=== PATIENT | female | born 1955 | race Caucasian/White ===

== ENCOUNTER 2017-07-14 09:37 | Inpatient (IN) | payer BC ==
[~2017-07-14] VITALS: Ht 162.6 cm; Wt 61.7 kg
[2017-07-14] MEDS ORDERED: SIMVASTATIN40 MG ORAL (09:50)
[2017-07-14] MEDS ORDERED: CARVEDILOL6.25 MG ORAL (09:50)
[2017-07-14 09:54] VITALS: BP 165/84
[2017-07-14 10:33] LABS: BASOPHILS % (AUTO) 0.5 % (0.0-2.0); MEAN CORPUSCULAR HEMOGLOBIN 31.3 PG (27.0-31.0); MEAN CORPUSCULAR HGB CONC 32.6 G/DL (32.0-36.0); MEAN CORPUSCULAR VOLUME 96 FL (80-99); MEAN PLATELET VOLUME 6.8 FL (6.5-10.1); MONOCYTES % (AUTO) 10.4 % (1.0-10.0); NEUTROPHILS % (AUTO) 53.1 % (45.0-75.0); PLATELET COUNT 295 K/UL (150-450); RED BLOOD COUNT 4.51 M/UL (4.20-5.40); RED CELL DISTRIBUTION WIDTH 11.2 % (11.6-14.8); WHITE BLOOD COUNT 6.2 K/UL (4.8-10.8)
[2017-07-14 10:55] LABS: ANION GAP 9 mmol/L (5-15); CALCIUM 9.4 MG/DL (8.5-10.1); CARBON DIOXIDE 28 MMOL/L (21-32); CHLORIDE 104 MMOL/L (98-107); CREATININE 0.7 MG/DL (0.55-1.30); GLOMERULAR FILTRATION RATE > 60 mL/min (>60); POTASSIUM 3.9 MMOL/L (3.5-5.1); SODIUM 141 MMOL/L (136-145)
[2017-07-14 10:57] VITALS: BP 158/87
[2017-07-14 11:07] LABS: ALANINE AMINOTRANSFERASE 26 U/L (12-78); ASPARTATE AMINO TRANSFERASE 30 U/L (15-37); CKMB 1.8 NG/ML (0.0-3.6); TOTAL PROTEIN 8.1 G/DL (6.4-8.2)
--- NOTE | 2017-07-14 11:31 | Emergency Room Report ---
History of Present Illness General Chief Complaint: Chest Pain Source: Patient Present Illness HPI 62-year-old female presents ED planning of chest pain. Started this morning while at rest. Left-sided, pressure-like, radiating to jaw, 7/10. Last for several seconds then subsided. Patient had 2 more episodes of chest pain since. Nonexertional. Denies chest pain at this time. History of hypertension. Denies smoking or drug use. No other aggravating relieving factors. Denies any other associated symptoms Allergies: Coded Allergies: No Known Allergies (Unverified , 07/14/17) Patient History Past Medical History: HTN Past Surgical History: none Pertinent Family History: none Social History: Denies: smoking, alcohol use, drug use Now: No Immunizations: UTD Reviewed Nursing Documentation: PMH: Agreed, PSxH: Agreed Nursing Documentation-PMH Hx Hypertension: Yes Review of Systems All Other Systems: negative except mentioned in HPI Physical Exam Vital Signs Date Time Temp Pulse Resp B/P (MAP) Pulse Ox O2 Delivery O2 Flow Rate FiO2 07/14/17 09:45 98.1 76 17 165/84 99 Room Air Sp02 EP Interpretation: reviewed, normal General Appearance: no apparent distress, alert, GCS 15, non-toxic Head: normocephalic, atraumatic Eyes: bilateral eye normal inspection, bilateral eye PERRL ENT: hearing grossly normal, normal pharynx, no angioedema, normal voice Neck: full range of motion, supple/symm/no masses Respiratory: chest non-tender, lungs clear, normal breath sounds, speaking full sentences Cardiovascular #1: regular rate, rhythm, no edema Cardiovascular #2: 2+ carotid (R), 2+ carotid (L), 2+ radial (R), 2+ radial (L) , 2+ dorsalis pedis (R), 2+ dorsalis pedis (L) Gastrointestinal: normal bowel sounds, non tender, soft, non-distended, no guarding, no rebound Rectal: deferred Genitourinary: normal inspection, no CVA tenderness Musculoskeletal: back normal, gait/station normal, normal range of motion, non- tender Neurologic: alert, oriented x3, responsive, motor strength/tone normal, sensory intact, speech normal Psychiatric: judgement/insight normal, memory normal, mood/affect normal, no suicidal/homicidal ideation Reflexes: 3+ bicep (R), 3+ bicep (L), 3+ tricep (R), 3+ tricep (L), 3+ knee (R) , 3+ knee (L) Skin: normal color, no rash, warm/dry, well hydrated Lymphatic: no adenopathy Medical Decision Making Diagnostic Impression: Primary Impression: ACS (acute coronary syndrome) ER Course Hospital Course 62-year-old female presents ED complaining of intermittent chest pain Differential diagnoses include: [place]/unstable angina, contusion, muscle strain, PTX, rib fracture Clinical course Patient placed on stretcher. on decorative greens cutter. After initial history and physical I ordered labs, EKG, chest x-ray labs reviewed- no leukocytosis, hb/hct stable, electrolytes ok, trop negative EKG - NSR, no acute ischemic changes interpreted by me Chest x-ray- no acute process aspirin given. Case discussed with Dr. Craig and he agreed to accept the patient to his service for further care and support I. I feel this is a highly complex case requiring extensive working including EKG/Rhythm strip, Xray/CT/US, Blood/urine lab work, repeat exams while in ED, and administration of strong opiates/narcotics for pain control, admission to hospital or close patient follow up. Diagnosis - ACS admitted to telemetry in serious condition Labs Test 07/14/17 10:10 White Blood Count 6.2 K/UL (4.8-10.8) Red Blood Count 4.51 M/UL (4.20-5.40) Hemoglobin 14.1 G/DL (12.0-16.0) Hematocrit 43.4 % (37.0-47.0) Mean Corpuscular Volume 96 FL (80-99) Mean Corpuscular Hemoglobin 31.3 PG (27.0-31.0) Mean Corpuscular Hemoglobin Concent 32.6 G/DL (32.0-36.0) Red Cell Distribution Width 11.2 % (11.6-14.8) Platelet Count 295 K/UL (150-450) Mean Platelet Volume 6.8 FL (6.5-10.1) Neutrophils (%) (Auto) 53.1 % (45.0-75.0) Lymphocytes (%) (Auto) 35.0 % (20.0-45.0) Monocytes (%) (Auto) 10.4 % (1.0-10.0) Eosinophils (%) (Auto) 1.0 % (0.0-3.0) Basophils (%) (Auto) 0.5 % (0.0-2.0) Sodium Level 141 MMOL/L (136-145) Potassium Level 3.9 MMOL/L (3.5-5.1) Chloride Level 104 MMOL/L (98-107) Carbon Dioxide Level 28 MMOL/L (21-32) Anion Gap 9 mmol/L (5-15) Blood Urea Nitrogen 11 mg/dL (7-18) Creatinine 0.7 MG/DL (0.55-1.30) Estimat Glomerular Filtration Rate > 60 mL/min (>60) Glucose Level 109 MG/DL (74-106) Calcium Level 9.4 MG/DL (8.5-10.1) Total Bilirubin 0.3 MG/DL (0.2-1.0) Aspartate Amino Transf (AST/SGOT) 30 U/L (15-37) Alanine Aminotransferase (ALT/SGPT) 26 U/L (12-78) Alkaline Phosphatase 73 U/L (46-116) Total Creatine Kinase 80 U/L (26-308) Creatine Kinase MB 1.8 NG/ML (0.0-3.6) Creatine Kinase MB Relative Index 2.2 Troponin I 0.000 ng/mL (0.000-0.056) Pro-B-Type Natriuretic Peptide 30 pg/mL (0-125) Total Protein 8.1 G/DL (6.4-8.2) Albumin 4.1 G/DL (3.4-5.0) Globulin 4.0 g/dL Albumin/Globulin Ratio 1.0 (1.0-2.7) EKG Diagnostic Results Rate: normal Rhythm: NSR ST Segments: no acute changes ASA given to the pt in ED: Yes Rhythm Strip Diag. Results EP Interpretation: yes Rhythm: NSR, no PVC's, no ectopy Chest X-Ray Diagnostic Results Chest X-Ray Diagnostic Results : Chest X-Ray Ordered: Yes # of Views/Limited/Complete: 1 View Indication: Chest Pain EP Interpretation: Yes Interpretation: no consolidation, no effusion, no pneumothorax, no acute cardiopulmonary disease Impression: No acute disease Electronically Signed by: Electronically signed by Martin Liao MD Last Vital Signs Date Time Temp Pulse Resp B/P (MAP) Pulse Ox O2 Delivery O2 Flow Rate FiO2 07/14/17 10:57 98.1 17 158/87 99 Room Air 07/14/17 09:54 76 Status: improved Disposition: ADMITTED INPATIENT Condition: Serious Referrals: NON PHYSICIAN (PCP) MARTIN LIAO M.D. Jul 14, 2017 11:31
--- NOTE | 2017-07-14 11:36 | Diagnostic Imaging Report ---
Indication: Chest pain Technique: One view of the chest Comparison: none Findings: Lungs and pleural spaces are clear. Heart size is normal. Impression: No acute process
[2017-07-14] MEDS ORDERED: Enalaprilat 2.5mg/2ml Inj IV PRN (12:00)
[2017-07-14] MEDS ORDERED: Ketorolac 30mg Inj IV PRN (12:00)
[2017-07-14] MEDS ORDERED: dilTIAZem HCl 25mg/5ml Inj IV PRN (12:00)
[2017-07-14] MEDS ORDERED: Miralax 17gm pkt ORAL PRN (12:00)
[2017-07-14] MEDS ORDERED: Morphine Sulfate 2mg/ml Inj IVP PRN (12:00)
[2017-07-14] MEDS ORDERED: Albuterol/Ipratropium 3ml neb HHN PRN (12:00)
[2017-07-14 12:03] LABS: APPEARANCE,URINE CLEAR; KETONES,URINE NEGATIVE (NEGATIVE); LEUKOCYTE ESTERASE ,URINE 1+ (NEGATIVE); NITRITE,URINE NEGATIVE (NEGATIVE); PH,URINE 8 (4.5-8.0); PROTEIN,URINE NEGATIVE (NEGATIVE); UROBILINOGEN,URINE NORMAL MG/DL (0.0-1.0)
[2017-07-14] MEDS ORDERED: Nitroglycerin Subl 0.4mg tab SL PRN (12:15)
[2017-07-14 12:19] LABS: BACTERIA,URINE OCCASIONAL /HPF; RBC,URINE 0-2 /HPF (0 - 2); SQUAMOUS EPITHELIAL CELL,UR OCCASIONAL /LPF (NONE/OCC); WBC,URINE 0-2 /HPF (0 - 2)
[2017-07-14 14:50] VITALS: BP 139/84
--- NOTE | 2017-07-14 18:59 | Cardiology Progress Note ---
Assessment/Plan Assessment/Plan [id number] very atypiicla cp unlikey ischemic awiat trop and ekg repeat Objective Last 24 Hour Vital Signs Date Time Temp Pulse Resp B/P (MAP) Pulse Ox O2 Delivery O2 Flow Rate FiO2 07/14/17 16:51 85 07/14/17 14:50 97.9 65 18 139/84 97 07/14/17 13:24 98.1 17 158/87 99 Room Air 07/14/17 10:57 98.1 17 158/87 99 Room Air 07/14/17 09:54 76 17 Room Air 07/14/17 09:54 98.1 17 165/84 99 Room Air 07/14/17 09:45 98.1 76 17 165/84 99 Room Air Intake and Output 07/14/17 07/15/17 19:00 07:00 Intake Total 0 ml Balance 0 ml Intake Oral 0 ml Laboratory Tests Test 07/14/17 10:10 07/14/17 11:45 White Blood Count 6.2 K/UL (4.8-10.8) Red Blood Count 4.51 M/UL (4.20-5.40) Hemoglobin 14.1 G/DL (12.0-16.0) Hematocrit 43.4 % (37.0-47.0) Mean Corpuscular Volume 96 FL (80-99) Mean Corpuscular Hemoglobin 31.3 PG (27.0-31.0) H Mean Corpuscular Hemoglobin Concent 32.6 G/DL (32.0-36.0) Red Cell Distribution Width 11.2 % (11.6-14.8) L Platelet Count 295 K/UL (150-450) Mean Platelet Volume 6.8 FL (6.5-10.1) Neutrophils (%) (Auto) 53.1 % (45.0-75.0) Lymphocytes (%) (Auto) 35.0 % (20.0-45.0) Monocytes (%) (Auto) 10.4 % (1.0-10.0) H Eosinophils (%) (Auto) 1.0 % (0.0-3.0) Basophils (%) (Auto) 0.5 % (0.0-2.0) Sodium Level 141 MMOL/L (136-145) Potassium Level 3.9 MMOL/L (3.5-5.1) Chloride Level 104 MMOL/L (98-107) Carbon Dioxide Level 28 MMOL/L (21-32) Anion Gap 9 mmol/L (5-15) Blood Urea Nitrogen 11 mg/dL (7-18) Creatinine 0.7 MG/DL (0.55-1.30) Estimat Glomerular Filtration Rate > 60 mL/min (>60) Glucose Level 109 MG/DL (74-106) H Calcium Level 9.4 MG/DL (8.5-10.1) Total Bilirubin 0.3 MG/DL (0.2-1.0) Aspartate Amino Transf (AST/SGOT) 30 U/L (15-37) Alanine Aminotransferase (ALT/SGPT) 26 U/L (12-78) Alkaline Phosphatase 73 U/L (46-116) Total Creatine Kinase 80 U/L (26-308) Creatine Kinase MB 1.8 NG/ML (0.0-3.6) Creatine Kinase MB Relative Index 2.2 Troponin I 0.000 ng/mL (0.000-0.056) Pro-B-Type Natriuretic Peptide 30 pg/mL (0-125) Total Protein 8.1 G/DL (6.4-8.2) Albumin 4.1 G/DL (3.4-5.0) Globulin 4.0 g/dL Albumin/Globulin Ratio 1.0 (1.0-2.7) Urine Color Yellow Urine Appearance Clear Urine pH 8 (4.5-8.0) Urine Specific [place] 1.015 (1.005-1.035) Urine Protein Negative (NEGATIVE) Urine Glucose (UA) Negative (NEGATIVE) Urine Ketones Negative (NEGATIVE) Urine Occult Blood Negative (NEGATIVE) Urine Nitrite Negative (NEGATIVE) Urine Bilirubin Negative (NEGATIVE) Urine Urobilinogen Normal MG/DL (0.0-1.0) Urine Leukocyte Esterase 1+ (NEGATIVE) H Urine RBC 0-2 /HPF (0 - 2) Urine WBC 0-2 /HPF (0 - 2) Urine Squamous Epithelial Cells Occasional /LPF Urine Bacteria Occasional /HPF (NONE) SIXTO COREY Jul 14, 2017 18:59
[2017-07-14] MEDS: Carvedilol 6.25mg Tab ORAL SCH (21:44)
[2017-07-14] MEDS: Heparin 5000 units/ml inj SUBQ SCH (21:45)
--- NOTE | 2017-07-14 23:42 | History & Physical ---
History and Physical History & Physicial H & P Dictated Job # Richard Craig MD Jul 14, 2017 23:42
[2017-07-15 00:42] VITALS: BP 105/59
[2017-07-15 04:00] VITALS: BP 108/60
--- NOTE | 2017-07-15 04:15 | Consultation ---
DATE OF CONSULTATION: 07/14/2017 CARDIOLOGY CONSULTATION CONSULTING PHYSICIAN: Reaz Luque M.D. REFERRING PHYSICIAN: Dami Barton M.D. REASON FOR EVALUATION: Management of chest pain. HISTORY OF PRESENT ILLNESS: This is a 62-year-old female, who gives history of familial hyperlipidemia and hypertension, who presented to the hospital because of two episodes of pain that occurred today, each lasting approximately 20 seconds or so. No relieving or exacerbating factors identified by the patient. No worsening with twisting, turning, taking deep breath, coughing, or palpation. Because of her symptoms and on the second episode where she had some radiation of the pain to her left shoulder, she decided to come in. She got an Uber to come to the hospital emergency room and was admitted through the emergency room for further evaluation. She has not had any of the pain ever since then and she has not had the pain prior to this. She has had a stress test apparently at [facility] by her knife changer within the last year and that apparently was normal. She does not have any PND or orthopnea. She uses one pillow. There is no dizziness on standing. No heart pounding or palpitations in the past. PAST MEDICAL HISTORY: Positive for familial hyperlipidemia and hypertension. No history of heart attack, cancer, stroke, hepatitis, tuberculosis, asthma, or emphysema. No ulcers. No kidney problems, liver problems, thyroid problems, anemia, HIV/AIDS, blood clots, or any other medical problems. ALLERGIES: No allergies to medications. SOCIAL HISTORY: Two drinks of wine at times per day. No drugs and no tobacco. REVIEW OF SYSTEMS: GASTROINTESTINAL: Negative. GENITOURINARY: Negative. PULMONARY: Negative. CONSTITUTIONAL: Negative. NEUROLOGIC: Negative. PHYSICAL EXAMINATION: GENERAL: Examination shows her to be a middle-aged female, in no respiratory distress. HEENT: Unremarkable. NECK: Supple. No jugular venous distention. No abdominojugular reflux is noted. LUNGS: Clear to auscultation and percussion. CARDIAC: S1 is normal. S2 is normal. Regular rate and rhythm. No heaves, thrills, gallops, or rubs are noted. ABDOMEN: Soft and nontender. Positive bowel sounds. EXTREMITIES: There is no edema or cyanosis. MUSCULOSKELETAL: No chest wall tenderness. No reproduction of pain on palpation of the chest wall. LABORATORY AND DIAGNOSTIC DATA: Telemetry strips so far negative. The patient had an echocardiogram, preliminary report shows normal LV function, ejection fraction valvular dysfunction. EKG showed normal sinus rhythm, no ST-T wave abnormalities, delay in R-wave progression . Troponin was negative on the first check. BNP of only 30. Sodium 141, potassium 3.9, chloride 104, bicarbonate 28, BUN of 11, creatinine 0.7, and glucose of . Calcium is 9.4. White count 6.3, hemoglobin 14.1, and platelet count of 295,000. Urinalysis is fairly unremarkable. She did have a chest x-ray performed in the emergency room, interpreted by the radiologist as no acute processes. ASSESSMENT: 1. Atypical chest pain. 2. Familial hyperlipidemia. 3. Hypertension. PLAN: Dr. Barton, this patient was seen in cardiac consultation. The patient's blood pressure is anywhere between 150-160s over 84-87. Heart rate is in the 60s. Temperature 97.9. First set of cardiac enzymes negative and EKG was negative, but I recommend checking two other sets of cardiac enzymes and another EKG tomorrow morning. Her pain is really atypical lasting only 20 seconds and unlikely to be myocardial ischemic pain, however, she does have some risk factors for coronary artery disease. I have offered her to do an exercise stress test here. She indicated she has had one done recently and she was instructed that she might if she wanted to have a stress test done tomorrow, she does not want to have this test done here. Tomorrow, she may have it and follow up with her usual knife changer at [facility], otherwise an exercise Cardiolite test may be very helpful for exclusion of underlying coronary artery disease, although the pain that she describes is unlikely to be ischemic in origin. Reza Luque M.D. DR: MARIA DE JESUS JOB#: [id number] CC:
[2017-07-15 07:30] LABS: BASOPHILS % (AUTO) 0.7 % (0.0-2.0); EOSINOPHILS % (AUTO) 1.7 % (0.0-3.0); LYMPHOCYTES % (AUTO) 42.3 % (20.0-45.0); MEAN CORPUSCULAR HEMOGLOBIN 32.3 PG (27.0-31.0); MEAN CORPUSCULAR HGB CONC 33.1 G/DL (32.0-36.0); MEAN CORPUSCULAR VOLUME 98 FL (80-99); MEAN PLATELET VOLUME 6.9 FL (6.5-10.1); MONOCYTES % (AUTO) 11.3 % (1.0-10.0); PLATELET COUNT 251 K/UL (150-450); RED BLOOD COUNT 4.01 M/UL (4.20-5.40); RED CELL DISTRIBUTION WIDTH 11.6 % (11.6-14.8); WHITE BLOOD COUNT 6.7 K/UL (4.8-10.8)
[2017-07-15 08:30] LABS: CHOLESTEROL 253 MG/DL (< 200); CHOLESTEROL/HDL RATIO 2.9 (3.3-4.4); CRP QUANT < 0.4 mg/dL (0.00-0.90); THYROID STIMULATING HORMONE 3.007 uiU/mL (0.358-3.740)
[2017-07-15 08:49] VITALS: BP 124/76
[2017-07-15] MEDS: Heparin 5000 units/ml inj SUBQ SCH (08:49)
[2017-07-15] MEDS: Carvedilol 6.25mg Tab ORAL SCH (08:49)
--- NOTE | 2017-07-15 08:54 | Discharge Summary ---
Discharge Summary Hospital Course Date of Admission Jul 14, 2017 at 11:28 Date of Discharge Admitting Diagnosis ACUTE CORONARY SYNDROME HPI Claudia Segura is a 62 year old female who was admitted on Jul 14, 2017 at 11 :28 for Acute Coronary Syndrome Hospital Course Discharge Discharge Disposition Patient was discharged to Discharge Diagnoses: Richard Craig MD Jul 15, 2017 08:54
[2017-07-15] MEDS ORDERED: ASPIRIN81 MG ORAL (08:59)
[2017-07-15] MEDS ORDERED: Aspirin Baby 81mg ORAL SCH (09:00)
--- NOTE | 2017-07-15 11:24 | Cardiology Report ---
APPROVED REPORT EKG Measurement Heart [id number] Sinus bradycardia Anteroseptal infarct, age undetermined Abnormal ECG
--- NOTE | 2017-07-15 11:27 | Cardiology Report ---
APPROVED REPORT EKG Measurement Heart [id number] Normal sinus rhythm Septal infarct, age undetermined Abnormal ECG
--- NOTE | 2017-07-15 16:16 | History and Physical Report ---
DATE OF ADMISSION: 07/14/2017 CHIEF COMPLAINT: Chest pain. HISTORY OF PRESENT ILLNESS: This is a 62-year-old female with past medical history significant for familial dyslipidemia and hypertension who presented to the hospital complaining about two episodes of chest pain lasted approximately about 20 seconds, no relieving or exacerbation factors. She complained about the radiation to the arms, left arm and shoulder. She said that she recently had a stress test done with her primary doctor who is a wood borer at [facility] with unremarkable stress test and the patient was subsequently after initial evaluation in the emergency was admitted to the hospital with chest pain, possible acute coronary syndrome. PAST MEDICAL HISTORY AND PAST SURGICAL HISTORY: Significant for familial dyslipidemia as well as hypertension. Denies any history of heart attack, cancer, or stroke in the past. MEDICATIONS: Medications at home is significant for carvedilol and simvastatin. ALLERGIES: No known drug allergies. SOCIAL HISTORY: The patient drinks wine two drinks per day. Denies any drugs or substance. FAMILY HISTORY: Noncontributory. REVIEW OF SYSTEMS: Mostly as above. Denies any dysuria, frequency, hematuria, or hematochezia. Denies any hemoptysis or hematochezia. Denies any loss of consciousness. Denies any double vision. PHYSICAL EXAMINATION: VITAL SIGNS: Temperature 97.3, pulse of 57, respirations 20, and blood pressure 108/60. GENERAL: The patient is awake and responsive, in no acute distress. HEAD AND NECK: Pupils are reactive to light. Extraocular movements are intact. NECK: Supple. No JVD. LUNGS: Good air entry. No wheezing or rales. HEART: S1 and S2. Regular rhythm. No gallops. ABDOMEN: Soft, nondistended, and nontender. Positive bowel sounds. EXTREMITIES: No cyanosis, clubbing, or edema. NEUROLOGIC: Cranial nerves II through XII are grossly intact. Motor is 5/5 in all extremities. Gait is intact. LABORATORY AND DIAGNOSTIC DATA: On admission, WBC of 6.2, hemoglobin 14, hematocrit 43, and platelet is 295. The patient's sodium 141, potassium 3.9, chloride 104, bicarbonate 28, BUN 11, creatinine 0.7, and glucose is 109. Liver function essentially unremarkable. First and second troponin unremarkable at 0.00. The patient's total cholesterol is 253 and triglyceride is 103. Urinalysis, +1 leukocyte otherwise negative WBC or RBC. PT of 10, INR 1.0, and PTT of 28. EKG was done noted to be normal sinus rhythm with rate of 63. No ST elevation was identified. No T-wave inversions. Chest x-ray, no acute process. ASSESSMENT: 1. Chest pain, possible acute coronary syndrome. 2. Dyslipidemia. 3. Hypertension. PLAN: Admit the patient to telemetry. We will follow up laboratory. Serial cardiac enzymes. If the cardiac enzymes are negative due to the fact the patient just had a stress test done, we will consider to defer stress test and discharge patient to home to be follow up with the primary doctor as outpatient. The patient has been consulted with Dr. Reza Luque from Cardiology. Richard Craig M.D. DR: BRE JOB#: [id number] CC:
--- NOTE | 2017-07-16 05:15 | Discharge Summary ---
DATE OF ADMISSION: 07/14/2017 DATE OF DISCHARGE: 07/15/2017 HISTORY AND HOSPITAL COURSE: This is a 62-year-old female with past medical history significant for dyslipidemia and hypertension who has presented to the hospital complaining about chest pain. Shortly after initial evaluation, the patient was consulted with Dr. Reza Luque from Cardiology. Her cardiac enzyme was essentially unremarkable. The patient's symptoms improved and subsequently the patient was discharged home today to follow up with the primary doctor at [facility]. FINAL DIAGNOSES: 1. Atypical chest pain. 2. Hypertension. 3. Dyslipidemia. MEDICATION ON DISCHARGE: Continue discharge medication list. ACTIVITY: As tolerated. DIET: Cardiac diet. FOLLOWUP: The patient was advised to follow up with the primary doctor at [facility] within 1 to 2 weeks. Richard Craig M.D. DR: BRE JOB#: [id number] CC:
--- NOTE | 2017-07-18 10:18 | Cardiology Report ---
APPROVED REPORT EXAM: Two-dimensional and M-mode echocardiogram with Doppler and color Doppler. M-Mode DIMENSIONS IVSd0.5 (0.7-1.1cm)Left Atrium (MM)2.3 (1.6-4.0cm) LVDd4.3 (3.5-5.6cm)Aortic Root3.1 (2.0-3.7cm) PWd0.9 (0.7-1.1cm)Aortic Cusp Exc.1.9 (1.5-2.0cm) IVSs1.1 cm LVDs2.5 (2.5-4.0cm) PWs1.2 cm Normal left ventricular chamber size, systolic function and wall motion. Left ventricular ejection fraction estimated to be 65-70 %. No evidence of left ventricular hypertrophy. No evidence of pericardial effusion. All other cardiac chamber sizes are within normal limits. Mild Focal aortic valve sclerosis with adequate cusp excursion. Mild Thickened mitral valve leaflets with normal excursion. Mild Mitral annulus and aortic root calcification. Normal pulmonic valve structure. Normal tricuspid valve structure. IVC at normal size with physiologic collapse. A color flow and spectral Doppler study was performed and revealed: No aortic regurgitation. Trace mitral regurgitation. Mitral diastolic velocities suggest reduced left ventricular relaxation c/w mild LV diastolic dysfunction (Grade I ) Trace tricuspid regurgitation. Tricuspid systolic velocities suggests peak right ventricular systolic pressure of 22 mmHg No Pulmonic regurgitation present.
== END 2017-07-15 12:00 | disposition home or self-care (01) | DRG 313 ==
LOC: EMR 10:15 → 2E 11:28 → EDBEDREQ 11:58
DX: R07.89 Other chest pain (principal); I10 Essential (primary) hypertension; E78.4 Other hyperlipidemia
CPT/HCPCS: 36415; 71010; 80053; 80061; 81003; 82550; 82553; 83880; 84443; 84484; 85025; 85610; 85730; 86140; 93005; 93306; 99285